=== PATIENT | male | born 1970 | race Caucasian/White ===

== ENCOUNTER 2021-09-16 12:04 | Inpatient (IN) | payer BC ==
[~2021-09-16] VITALS: Ht 188 cm; Wt 106.1 kg
--- NOTE | 2021-09-16 12:14 | NUR ---
CALLED TO TRIAGE,NO ANSWER
--- NOTE | 2021-09-16 12:35 | NUR ---
BIBSELF C/O feeling dizzy while standing from chair w/ mild headache. AMBULATORY AAOX4
[2021-09-16 13:30] LABS: BASOPHILS % (AUTO) 0.8 % (0.0-2.0); EOSINOPHILS % (AUTO) 0.8 % (0.0-6.0); HEMATOCRIT 42 % (39-51); HEMOGLOBIN 14.1 g/dL (13.5-17.5); LYMPHOCYTES # (AUTO) 1.6 K/uL (0.8-4.8); LYMPHOCYTES % (AUTO) 27.5 % (20.0-44.0); MEAN CORPUSCULAR HGB CONC 33 g/dl (31.0-36.0); MEAN CORPUSCULAR VOLUME 91 fL (80-96); MONOCYTES # (AUTO) 0.5 K/uL (0.1-1.30); NEUTROPHILS # (AUTO) 3.8 K/uL (1.8-8.9); NEUTROPHILS % (AUTO) 62.9 % (43.0-81.0); PLATELET COUNT (AUTO) 241 K/uL (150-450); RED BLOOD CELL COUNT(AUTO) 4.66 MIL/uL (4.5-6.0)
[2021-09-16 13:36] LABS: BILIRUBIN,URINE NEGATIVE (NEGATIVE); COLOR,URINE YELLOW (YELLOW); LEUKOCYTE ESTERASE ,URINE NEGATIVE (NEGATIVE); NITRITE, URINE NEGATIVE (NEGATIVE); PROTEIN,URINE NEGATIVE (NEGATIVE); UGLUCOSE NEGATIVE (NEGATIVE); UROBILINOGEN,URINE 0.2 EU/dL (0.2)
[2021-09-16 13:44] LABS: CALCIUM, SERUM 8.8 mg/dL (8.5-10.1); CARBON DIOXIDE 29 mmol/L (21-32); CHLORIDE 103 mmol/L (98-107); CREATININE 0.9 mg/dL (0.6-1.3); GLUCOSE 98 mg/dL (74-106); POTASSIUM 4.1 mmol/L (3.5-5.1); SODIUM SERUM 139 mmol/L (136-145); UREA NITROGEN, BLOOD 16 mg/dL (7-18)
[2021-09-16 14:01] LABS: RBC,URINE NONE SEEN /HPF (0-2); SQUAMOUS EPITHELIAL CELL,UR None Seen /HPF (None Seen); WBC,URINE NONE SEEN /HPF (0-3)
[2021-09-16 14:02] LABS: BACTERIA,URINE None seen /HPF (None Seen)
[2021-09-16 14:41] LABS: BASOPHILS % (AUTO) 0.7 % (0.0-2.0); EOSINOPHILS % (AUTO) 0.7 % (0.0-6.0); HEMATOCRIT 41 % (39-51); HEMOGLOBIN 13.2 g/dL (13.5-17.5); LYMPHOCYTES # (AUTO) 1.7 K/uL (0.8-4.8); LYMPHOCYTES % (AUTO) 31.5 % (20.0-44.0); MEAN CORPUSCULAR HGB CONC 32 g/dl (31.0-36.0); MEAN CORPUSCULAR VOLUME 91 fL (80-96); MONOCYTES # (AUTO) 0.4 K/uL (0.1-1.30); MONOCYTES % (AUTO) 8.1 % (2.0-12.0); NEUTROPHILS # (AUTO) 3.2 K/uL (1.8-8.9); PLATELET COUNT (AUTO) 237 K/uL (150-450); WHITE BLOOD COUNT (AUTO) 5.4 K/uL (4.3-11.0)
--- NOTE | 2021-09-16 16:45 | NUR ---
ON BED SIDE PATIENT FOR ADMISSION
--- NOTE | 2021-09-16 16:55 | NUR ---
SWAB FOR COVID 19 DONE AND SENT TO LAB.
[2021-09-16] MEDS ORDERED: IRBE75TA11 PO (16:57)
--- NOTE | 2021-09-16 17:15 | NUR ---
ACUTE CARE CERTIFIED NURSING ASSISTANT AT BED SIDE TROPONIN TEST
--- NOTE | 2021-09-16 17:40 | NUR ---
CALLED NURSING SUP REGARDING PT BED
[2021-09-16] MEDS ORDERED: MAG HYDROX/AL HYDROX/SIMETH 30 ML UDC PO PRN (18:30)
[2021-09-16] MEDS ORDERED: ONDANSETRON HCL/PF 4 MG/2 ML VIAL IVP PRN (18:30)
[2021-09-16] MEDS ORDERED: ACETAMINOPHEN 325 MG TABLET PO PRN (18:30)
[2021-09-16] MEDS ORDERED: TEMAZEPAM 15 MG CAPSULE PO PRN (18:30)
[2021-09-16] MEDS ORDERED: MORPHINE SULFATE INJ 2 MG/ML DISP.SYRIN IV PRN (18:30)
[2021-09-16] MEDS ORDERED: HYDROCODONE/APAP 5/325MG TABLET PO PRN (18:30)
[2021-09-16] MEDS ORDERED: MAGNESIUM HYDROXIDE 30 ML UDC PO PRN (18:30)
[2021-09-16] MEDS ORDERED: Z GUARD REMEDY 4 OZ OINT TP PRN (18:30)
--- NOTE | 2021-09-16 19:47 | NUR ---
RECIEVED REPORT FROM JENNIFER SARGENT FOR BERTA
--- NOTE | 2021-09-16 19:47 | NUR ---
PT IS RESTING COMFORTABLY IN BED, PT DENIES ANY PAIN AT THIS TIME. WATER AND WARM BLANKET PROVIDED. WILL CONTINUE TO MONITOR
--- NOTE | 2021-09-16 20:30 | NUR ---
REPORT GIVEN TO JANIS SARGENT FOR BERTA
[2021-09-16 21:00] VITALS: BP 130/77
--- NOTE | 2021-09-16 21:00 | NUR ---
[employer] POLICE NOTE PT WAS TRANSPORTED VIA GURNEY TO THE UNIT AT THIS TIME. PT IS FROM HOME ADMITTED TO TELEMETRY FROM ER UNDER SENIOR TECHNICAL SUPPORT ENGINEER IGNACIO FOR ADMITTING DX NEAR SYNCOPE. PT A/O X4. NO SOB OR S/S OF RESPIRATORY DISTRESS NOTED. BREATHING EVEN AND UNLABORED. PT STABLE ON ROOM AIR WITH O2 SATURATION 99%. ON EXTERNAL DIGITAL COMMUNITY MANAGER READING SR @ 72 BPM. PT STATED THEY ARE NOT HAVING ANY PAIN OR DISCOMFORT AT THIS TIME. SKIN IS INTACT. IV ACCESS LAC 20 GAUGE SL, INTACT AND PATENT. ORIENTED PT TO STAFF, ROOM, AND UNIT. ALL BELONGINGS ACCOUNTED FOR AND SIGNED PATIENT BELONGINGS LIST. SAFETY PRECAUTIONS IN PLACE. BED IN LOWEST LOCKED POSITION, HOB ELEVATED, SIDE RAILS UP X2, AND CALL LIGHT AND TABLE WITHIN REACH. ALL NEEDS MET AND ATTENDED TO AT THIS TIME.
[2021-09-16 22:02] VITALS: BP 130/77
--- NOTE | 2021-09-16 22:32 | NUR ---
RN NOTE PT REQUESTED SLEEPING PILL. ADMINISTERED RESTORIL 15 MG ORDERED FOR INSOMNIA. ALL NEEDS MET AND ATTENDED TO AT THIS TIME.
[2021-09-17] VITALS: BP 100/54
[2021-09-17 04:00] VITALS: BP 100/58
[2021-09-17 06:26] LABS: BASOPHILS # (AUTO) 0.1 K/uL (0.0-0.2); BASOPHILS % (AUTO) 0.8 % (0.0-2.0); EOSINOPHILS % (AUTO) 1.6 % (0.0-6.0); HEMATOCRIT 41 % (39-51); HEMOGLOBIN 13.6 g/dL (13.5-17.5); LYMPHOCYTES # (AUTO) 2.5 K/uL (0.8-4.8); MEAN CORPUSCULAR HGB CONC 33 g/dl (31.0-36.0); MEAN CORPUSCULAR VOLUME 90 fL (80-96); MONOCYTES # (AUTO) 0.7 K/uL (0.1-1.30); MONOCYTES % (AUTO) 9.9 % (2.0-12.0); NEUTROPHILS # (AUTO) 3.5 K/uL (1.8-8.9); NEUTROPHILS % (AUTO) 50.7 % (43.0-81.0); PLATELET COUNT (AUTO) 253 K/uL (150-450); RED BLOOD CELL COUNT(AUTO) 4.55 MIL/uL (4.5-6.0); WHITE BLOOD COUNT (AUTO) 6.8 K/uL (4.3-11.0)
--- NOTE | 2021-09-17 06:45 | NUR ---
PRINT SHOP MANAGER CLOSING NOTE PT AWAKE IN BED. A/O X4. NO SOB OR S/S OF RESPIRATORY DISTRESS NOTED. BREATHING EVEN AND UNLABORED. PT STABLE ON ROOM AIR WITH O2 SATURATION 99%. ON EXTERNAL MINING CAPTAIN READING SR @ 70 BPM. PT STATED THEY ARE NOT HAVING ANY PAIN OR DISCOMFORT AT THIS TIME. IV ACCESS LAC 20 GAUGE SL, INTACT AND PATENT. SAFETY PRECAUTIONS IN PLACE. BED IN LOWEST LOCKED POSITION, HOB ELEVATED, SIDE RAILS UP X2, AND CALL LIGHT AND TABLE WITHIN REACH. ALL NEEDS MET AND ATTENDED TO AT THIS TIME. WILL ENDORSE TO ONCOMING SHIFT FOR BERTA.
[2021-09-17 07:22] LABS: CALCIUM, SERUM 8.9 mg/dL (8.5-10.1); MAGNESIUM 2.3 mg/dL (1.8-2.4); PHOSPHORUS 5.4 mg/dL (2.5-4.9); POTASSIUM 4.1 mmol/L (3.5-5.1)
[2021-09-17] MEDS ORDERED: PANTOPRAZOLE 40 MG TABLET.DR PO SCH (07:30)
[2021-09-17 07:53] LABS: THYROID STIMULATING HORMONE 5.502 uIU/mL (0.358-3.74)
[2021-09-17 08:00] VITALS: BP 116/74
--- NOTE | 2021-09-17 08:11 | NUR ---
RN NOTES OCCASIONAL CAREGIVER AT BEDSIDE FOR ECHO PROCEDURE.
[2021-09-17] MEDS ORDERED: ATORVASTATIN 40 MG TABLET PO SCH (09:00)
[2021-09-17] MEDS ORDERED: LOSARTAN POTASSIUM 25 MG TABLET PO SCH (09:00)
[2021-09-17] MEDS ORDERED: ASPIRIN 81 MG TAB.CHEW PO SCH (09:00)
--- NOTE | 2021-09-17 10:23 | NUR ---
RN NOTES PATIENT TAKEN TO RADIOLOGY FOR CT ANGIO PROCEDURE VIA WHEELCHAIR, ACCOMPANIED BY 1 TRANSPORTER/TECH.
[2021-09-17] MEDS ORDERED: CT SWABBABLE VALVE TRANS SET 1 EA INFUS.SET MC ONE (10:33)
[2021-09-17] MEDS ORDERED: METOPROLOL TARTRATE INJ 5 MG/5 ML AMPUL ONE (10:33)
[2021-09-17] MEDS ORDERED: IOHEXOL-350 100 ML VIAL IV ONE (10:33)
[2021-09-17] MEDS ORDERED: NITROGLYCERIN 0.4 MG/TAB BOTTLE ONE (10:33)
[2021-09-17] MEDS ORDERED: IV NS 0.9% 250 ML IV ONE (10:33)
--- NOTE | 2021-09-17 11:06 | NUR ---
RN NOTES PATIENT RETURNED FROM [facility] PROCEDURE VIA WHEELCHAIR, ACCOMPANIED BY 1 TECH AND STUDENT NURSE.
[2021-09-17 12:00] VITALS: BP 107/62
[2021-09-17 16:00] VITALS: BP 118/77
--- NOTE | 2021-09-17 16:10 | NUR ---
RN NOTES DR. WHITE MADE AWARE OF [facility] RESULT; CLEARED FROM CARDIAC PERSPECTIVE AND OK TO D/C HOME W/ CARDIO FOLLOW-UP IN 1 WEEK.
[2021-09-17] MEDS ORDERED: TEMA15CA5 PO (18:13)
--- NOTE | 2021-09-17 19:30 | NUR ---
RN NOTES PATIENT SEEN BY DR. PIERRE W/ ORDER FOR DISCHARGE TO HOME W/ CARDIO FOLLOW-UP. DISCHARGE INSTRUCTION AND EDUCATION PROVIDED TO PATIENT. DISCHARGE FORM AND BELONGINGS LIST FORM SIGNED BY PATIENT AND ALL BELONGINGS ACCOUNTED FOR. NO SKIN ISSUE NOTED. NAME ARMBAND RETAINED BY PATIENT; IV LINE AND TELE BOX REMOVED. PATIENT IS AMBULATORY W/ STEADY GAIT AND AMBULATED TO LOBBY. PICKED UP BY VIA PRIVATE CAR. CHARGE NURSE AND MD AWARE OF DISCHARGE.
== END 2021-09-17 19:00 | disposition home or self-care (01) | DRG 310 ==
LOC: ER 12:29 → TELE 20:20
PROVIDERS: ADMIT Nurse Practitioner Acute Care; ATTEND Nurse Practitioner Acute Care
DX: R00.1 Bradycardia, unspecified (principal); E78.5 Hyperlipidemia, unspecified; I10 Essential (primary) hypertension; E66.9 Obesity, unspecified; Z82.49 Family history of ischemic heart disease and other diseases of the circulatory system; Z87.891 Personal history of nicotine dependence; Z68.30 Body mass index [BMI] 30.0-30.9, adult; Z71.3 Dietary counseling and surveillance; R55 Syncope and collapse; Z20.822 Contact with and (suspected) exposure to COVID-19
CPT/HCPCS: 36415; 71045-TC; 75574; 80048-TC; 80061-TC; 81001; 82962-TC; 83735-TC; 84100-TC; 84439-TC; 84443-TC; 84484-TC; 85025-TC; 85378-TC; 87081-TC; 93307-TC; C9803; G0378; J3490; J7030; J7040; J7050; J7060; J7120; Q9967